=== PATIENT | male | born 1970 | race Asian ===

== ENCOUNTER 2024-11-27 15:36 | Emergency (ER) | payer SELFPAY ==
[2024-11-27] MEDS ORDERED: NA CHLORIDE 0.9% 1,000 ML ONE (16:05)
[2024-11-27] MEDS ORDERED: KETOROLAC 30 MG/ML INJ ONE (16:05)
[2024-11-27] MEDS ORDERED: ONDANSETRON 4 MG/2 ML VIAL ONE (16:05)
[2024-11-27 16:20] LABS: Absolute Lymphocytes (CBC) 1.5 K/uL (0.7-4.9); Hematocrit 45.0 % (39.6-49.0); Hemoglobin 14.8 g/dL (13.6-17.9); MCH 29.2 pg (27.0-35.0); MCHC 33.0 g/dL (32.0-36.0); MCV 88.5 fL (80-100); MPV 7.0 fL (7.6-11.3); Nucleated RBC Absolute Count 0.0 (0-0); Nucleated Red Blood Cells % 0.0 % (0-0); RBC Red Blood Cell Count 5.09 M/uL (4.33-5.43); White Blood Count 6.00 thou/uL (4.3-10.9)
[2024-11-27 16:24] LABS: Sqamous Epithelial None Seen /HPF (None Seen); Urine Micro Reflex YN NO BILL MICROSCOPIC; Urine WBC Clump Few /HPF (None Seen); Urine Yeast (Budding) Trace /HPF (None Seen)
[2024-11-27 16:37] LABS: ALT/SGPT 36.0 U/L (16-61); AST/SGOT 28.0 U/L (15-37); Albumin 3.6 g/dL (3.4-5.0); Albumin/Globulin Ratio 1.1 (1.1-1.8); Alkaline Phosphatase 75.0 U/L (45-117); Anion Gap 8.8 mEq/L (5.0-15.0); BUN Blood Urea Nitrogen 16.0 mg/dL (7-18); Globulin 3.3 g/dL (2.3-3.5); Glucose Level 123.0 mg/dL (74-106); Lipase 31.0 U/L (13-75); Potassium 3.8 mEq/L (3.5-5.1)
--- NOTE | 2024-11-27 16:53 | RAD REPORT ---
EXAMINATION: CT ABDOMEN AND PELVIS WITHOUT CONTRAST CLINICAL INDICATION: FLANK PAIN TECHNIQUE: CT abdomen and pelvis was performed, without IV contrast, as per department protocol. Axia l, sagittal and coronal reconstructions were obtained. One or more of the following dose reduction techniques were used: Automated exposure control, adjustment of the mA and kV according to the patien t size, and iterative reconstruction. Unless otherwise specified, incidental findings do not require dedicated imaging follow-up. COMPARISON: No prior exam. FINDINGS: The lack of intravenous contrast limits the sensitivity of this exam for evaluation of solid visceral organs, vascular structures, and retroperitoneum. LOWER CHEST: The visualized lung bases are clear. LIVER:Normal in size and contour. No focal lesion. Grossly unremarkable gallbladder. SPLEEN: Normal size. No focal lesion. PANCREAS: No mass, ductal dilation, or waqas-pancreatic fluid. ADRENALS: Normal; no mass. KIDNEYS AND URETERS: 3 mm stone is seen in the proximal right ureter resulting in mild right hydronep hrosis. Bilateral calyceal renal calculi are present bilaterally URINARY BLADDER: Normal contour. GASTROINTESTINAL TRACT: No evidence of bowel obstruction, significant free fluid, free air or abscess . APPENDIX: Appendix not visualized, but no inflammatory changes in region of appendix. LYMPH NODES: No lymphadenopathy. MUSCULOSKELETAL: Mild anterolisthesis L4 on 5. IMPRESSION: 3 mm stone proximal right ureter resulting in mild right hydronephrosis. Bilateral calyceal nephrolithiasis.
--- NOTE | 2024-11-27 17:35 | EDPHYS ---
Physician Documentation [facility] Name: Dinh Messina Age: 54 yrs Sex: Male : 1970 Arrival Date: 11/27/2024 Time: 15:36 Bed 2 Private MD: ED Physician Akash Houston HPI: 11/27 15:53 This 54 yrs old Male presents to ER via Ambulatory with complaints of Urinary jh7 Problem, Flank Pain. 15:53 54-year-old male with a past medical history of hypertension presents to the ER for jh7 hematuria and right flank pain radiating to the right lower quadrant starting this morning. The patient reports that he has had kidney stones in the past and that this feels similar. Denies nausea/vomiting, fever, or bowel changes.. Historical: - Allergies: 15:53 No Known Allergies; me1 - PMHx: 15:53 kidney stones; Hypertensive disorder; Hypercholesterolemia; me1 - PSHx: 15:53 None; me1 - Immunization history:: Adult Immunizations up to date. - Infectious Disease History:: Denies. - Social history:: Smoking status: Patient reports the use of cigarette tobacco products, smokes one-half pack cigarettes per day. ROS: 15:53 Constitutional: Per HPI jh7 Exam: 15:53 Constitutional: This is a well developed, well nourished patient who is awake, alert, jh7 and in no acute distress. Head/Face: Normocephalic, atraumatic. Cardiovascular: Regular rate and rhythm with a normal S1 and S2. No gallops, murmurs, or rubs. Normal PMI, no JVD. No pulse deficits. Respiratory: Lungs have equal breath sounds bilaterally, clear to auscultation and percussion. No rales, rhonchi or wheezes noted. No increased work of breathing, no retractions or nasal flaring. Skin: Warm, dry with normal turgor. Normal color with no rashes, no lesions, and no evidence of cellulitis. MS/ Extremity: Pulses equal, no cyanosis. Neurovascular intact. Full, normal range of motion. Neuro: Awake and alert, GCS 15, oriented to person, place, time, and situation. Motor strength 5/5 in all extremities. Sensory grossly intact. Normal gait. 15:53 Abdomen/GI: Inspection: abdomen appears normal, Bowel sounds: normal, Palpation: soft, mild abdominal tenderness, in the right lower quadrant, 15:53 : CVA tenderness, on the right, Vital Signs: 15:51 BP 128 / 87; Pulse 54; Resp 16; Temp 98.1; Pulse Ox 100% ; Weight 63.5 kg; Height 5 ft. me1 3 in. ; Pain 4/10; 16:30 BP 161 / 94; Pulse 57; Resp 16; Pulse Ox 100% on R/A; db 17:00 Pain 0/10; ar8 17:00 BP 139 / 96; Pulse 56; Resp 18; Pulse Ox 100% on R/A; Pain 0/10; ar8 18:00 BP 144 / 96; Pulse 60; Resp 16; Pulse Ox 100% on R/A; db 15:51 Body Mass Index 24.80 (63.50 kg, 160.02 cm) me1 15:51 Pain Scale: Adult me1 17:00 Pain Scale: Adult ar8 17:00 Pain Scale: Adult ar8 MDM: 15:42 Medical Screening Exam initiated [facility] 17:10 Differential diagnosis: UTI, Ureterolithiasis, pyelonephritis, lumbar sprain, bladder jh7 cancer. Data reviewed: vital signs, nurses notes, lab test result(s), radiologic studies, CT scan. I considered the following discharge prescriptions or medication management in the emergency department Medications were administered in the Emergency Department. See MAR. Care significantly affected by the following chronic conditions: Hypertension. Counseling: I had a detailed discussion with the patient and/or guardian regarding the historical points, exam findings, and any diagnostic results supporting the discharge/admit diagnosis, the need for outpatient follow up, a urologist, to return to the emergency department if symptoms worsen or persist or if there are any questions or concerns that arise at home. Response to treatment: the patient's symptoms have markedly improved after treatment. 11/27 15:47 Order name: CBC with Diff; Complete Time: 16:49 [facility] 11/27 15:47 Order name: CMP; Complete Time: 16:49 [facility] 11/27 15:47 Order name: Lipase; Complete Time: 16:49 [facility] 11/27 16:17 Order name: Urine Microscopic Only; Complete Time: 16:49 EDMS 11/27 16:28 Order name: Urine Culture EDMS 11/27 15:47 Order name: CT Abd/Pelvis - Without Contrast; Complete Time: 17:04 [facility] 11/27 15:47 Order name: IV Saline Lock; Complete Time: 16:15 [facility] 11/27 15:47 Order name: Labs collected and sent; Complete Time: 16:15 [facility] Administered Medications: 16:30 Drug: TORadol - Ketorolac IVP 15 mg IVP once Route: IVP; Site: left antecubital; db 17:00 Follow up: Pain 0/10 Adult; Response: No adverse reaction; Pain is decreased ar8 16:30 Drug: Ondansetron IVP 4 mg IVP once; over 2 minutes Route: IVP; Site: left antecubital; db 17:20 Follow up: Response: No adverse reaction ar8 16:30 Drug: NS 0.9% IV 1000 ml IV at 1 bolus Per protocol; to be given as a bolus over 60 db minutes Route: IV; Rate: 1 bolus; Site: left antecubital; 17:20 Follow up: Response: No adverse reaction; IV Status: Completed infusion; IV Intake: ar8 1000ml Disposition Summary: 11/27/24 17:34 Discharge Ordered Notes: Location: Home [facility] Problem: new [facility] Symptoms: have improved [facility] Condition: Stable [facility] Diagnosis - Hydronephrosis with renal and ureteral calculous obstruction [facility] Followup: [facility] - With: Haseeb Kerr MD - When: 2 - 3 days - Reason: Recheck today's complaints Discharge Instructions: - Discharge Summary Sheet [facility] - Kidney Stones [facility] - Hydronephrosis [facility] - Dietary Guidelines to Help Prevent Kidney Stones [facility] Forms: - Medication Reconciliation Form [facility] - Antibiotic Education [facility] - Prescription Opioid Use [facility] - Patient Portal Instructions [facility] - Leadership Thank You Letter [facility] Prescriptions: - Flomax 0.4 mg Oral capsule - take 1 capsule ORAL route daily for 10 days; 10 capsule; Refills: 0, Product [facility] Selection Permitted - ketorolac 10 mg Oral tablet - take 1 tablet ORAL route every 6 hours for 3 days; 12 tablet; Refills: 0, [facility] Product Selection Permitted - Cipro 500 mg Oral Tablet - take 1 tablet ORAL route every 12 hours for 10 days; 20 tablet; Refills: 0, [facility] Product Selection Permitted Addendum: 12/02/2024 07:54 Co-signature as Attending Physician, Akash Houston MD I agree with the assessment and c wagoner plan of care. Signatures: Dispatcher [employer] EDAkash Stoll MD MD cha Hadash, Jennifer, FOLLOW UP REP FOLLOW UP REP jh7 Rowena Arguello, RN RN db Soha Gregg, RN RN me1 Alexx Reilly RN ar8 Corrections: (The following items were deleted from the chart) 11/27 16:17 15:47 UA Rfx Ed Cult if indicated+U.LAB.BRZ ordered. ANGELA MILLER
--- NOTE | 2024-11-27 17:35 | ER ---
Nurse's Notes [facility] Name: Dinh Messina Age: 54 yrs Sex: Male : 1970 Arrival Date: 11/27/2024 Time: 15:36 Bed 2 Private MD: Diagnosis: Hydronephrosis with renal and ureteral calculous obstruction Presentation: 11/27 15:51 Chief complaint: Patient states: Sudden onset of RLQ and R flank pain that started me1 today with nausea. Urine is bloody. Coronavirus screen: At this time, the client does not indicate any symptoms associated with coronavirus-19. Ebola Screen: No symptoms or risks identified at this time. Initial Sepsis Screen: Does the patient meet any 2 criteria? No. Patient's initial sepsis screen is negative. Does the patient have a suspected source of infection? No. Patient's initial sepsis screen is negative. Risk Assessment: Do you want to hurt yourself or someone else? Patient reports no desire to harm self or others. Onset of symptoms was November 27, 2024 at 14:30. 15:51 Method Of Arrival: Ambulatory me1 15:51 Acuity: ZE 3 me1 Historical: - Allergies: 15:53 No Known Allergies; me1 - PMHx: 15:53 kidney stones; Hypertensive disorder; Hypercholesterolemia; me1 - PSHx: 15:53 None; me1 - Immunization history:: Adult Immunizations up to date. - Infectious Disease History:: Denies. - Social history:: Smoking status: Patient reports the use of cigarette tobacco products, smokes one-half pack cigarettes per day. Screenin:00 [facility] ED Fall Risk Assessment (Adult) History of falling in the last 3 months, ar8 including since admission No falls in past 3 months (0 pts) Confusion or Disorientation No (0 pts) Intoxicated or Sedated No (0 pts) Impaired Gait No (0 pts) Mobility Assist Device Used No (0 pt) Altered Elimination No (0 pt) Score/Fall Risk Level 0 - 2 = Low Risk Oriented to surroundings, Maintained a safe environment. Abuse screen: Denies threats or abuse. Nutritional screening: No deficits noted. Tuberculosis screening: No symptoms or risk factors identified. Assessment: 16:00 General: Appears uncomfortable, Behavior is calm, cooperative. ar8 16:00 Pain: Complains of pain in posterior aspect of right lateral abdomen and right lower ar8 quadrant Pain currently is 3 out of 10 on a pain scale. Neuro: Level of Consciousness is awake, alert, obeys commands, Oriented to person, place, time, situation. Cardiovascular: Patient's skin is warm and dry. Respiratory: Airway is patent Respiratory effort is even, unlabored, Respiratory pattern is regular, symmetrical. GI: Abdomen is flat, Abd is soft X 4 quads. : Urine is blood tinged, Reports right flank pain. Derm: No deficits noted. 17:00 Reassessment: Patient appears in no apparent distress at this time. Patient and/or db family updated on plan of care and expected duration. Pain level reassessed. Patient is alert, oriented x 3, equal unlabored respirations, skin warm/dry/pink. 17:58 Reassessment: AMBULATORY TO RESTROOM. db 18:25 Reassessment: Patient appears in no apparent distress at this time. Patient and/or db family updated on plan of care and expected duration. Pain level reassessed. Patient is alert, oriented x 3, equal unlabored respirations, skin warm/dry/pink. Patient states feeling better. Patient states symptoms have improved. Vital Signs: 15:51 BP 128 / 87; Pulse 54; Resp 16; Temp 98.1; Pulse Ox 100% ; Weight 63.5 kg; Height 5 ft. me1 3 in. ; Pain 4/10; 16:30 BP 161 / 94; Pulse 57; Resp 16; Pulse Ox 100% on R/A; db 17:00 Pain 0/10; ar8 17:00 BP 139 / 96; Pulse 56; Resp 18; Pulse Ox 100% on R/A; Pain 0/10; ar8 18:00 BP 144 / 96; Pulse 60; Resp 16; Pulse Ox 100% on R/A; db 15:51 Body Mass Index 24.80 (63.50 kg, 160.02 cm) me1 15:51 Pain Scale: Adult me1 17:00 Pain Scale: Adult ar8 17:00 Pain Scale: Adult ar8 ED Course: 15:40 Patient arrived in ED. cj3 15:42 [facility] jh7 15:42 Akash Houston MD is Attending Physician. 7 15:53 Triage completed. me1 15:53 Arm band placed on Patient placed in an exam room. me1 15:58 Alexx Reilly, RN is Primary Nurse. ar8 16:00 Placed in gown. Bed in low position. Side rails up X2. Provided Education on: plan of ar8 care, diagnostics and estimated wait times. Pulse ox on. NIBP on. 16:08 No provider procedures requiring assistance completed. Inserted saline lock: 20 gauge ar8 in right forearm, using aseptic technique. Blood collected. Flushed with 10 mL NS. 16:08 Urine collected: clean catch specimen. ar8 16:15 CBC with Diff Sent. ar8 16:15 CMP Sent. ar8 16:15 Lipase Sent. ar8 16:24 CT Abd/Pelvis - Without Contrast In Process Unspecified. EDMS 16:[address]. db 17:32 Haseeb Kerr MD is Referral Physician. 7 18:25 IV discontinued, intact, bleeding controlled, No redness/swelling at site. db Administered Medications: 16:30 Drug: TORadol - Ketorolac IVP 15 mg IVP once Route: IVP; Site: left antecubital; db 17:00 Follow up: Pain 0/10 Adult; Response: No adverse reaction; Pain is decreased ar8 16:30 Drug: Ondansetron IVP 4 mg IVP once; over 2 minutes Route: IVP; Site: left antecubital; db 17:20 Follow up: Response: No adverse reaction ar8 16:30 Drug: NS 0.9% IV 1000 ml IV at 1 bolus Per protocol; to be given as a bolus over 60 db minutes Route: IV; Rate: 1 bolus; Site: left antecubital; 17:20 Follow up: Response: No adverse reaction; IV Status: Completed infusion; IV Intake: ar8 1000ml Medication: 16:00 VIS not applicable for this client. ar8 Intake: 17:20 IV: 1000ml; Total: 1000ml. ar8 Outcome: 17:34 Discharge ordered by . 7 18:25 Discharged to home ambulatory, with family, db 18:25 Condition: stable 18:25 Discharge instructions given to patient, Instructed on discharge instructions, follow up and referral plans. Prescriptions given X 3, 18:31 Patient left the ED. ar8 Signatures: Dispatcher [employer] EDMS Barby Jones, JUNIOR ACCOUNTANT JUNIOR ACCOUNTANT 7 Rowena Arguello, RN RN db Soha Gregg, RN RN me1 Nidia Lopez cj3 Alexx Reilly, RN RN ar8 Corrections: (The following items were deleted from the chart) 16:17 16:15 UA Rfx Ed Cult if indicated+U.LAB.BRZ drawn and sent. ar8 EDMS 18:25 18:25 Discharge instructions given to patient, Instructed on discharge instructions, db follow up and referral plans. db
[2024-11-27 19:04] VITALS: BP 144/96; TEMP 98.1; O2SAT 100
== END 2024-11-27 18:31 | disposition home or self-care (01) ==
LOC: ER 15:36
DX: N13.2 Hydronephrosis with renal and ureteral calculous obstruction (principal); F17.210 Nicotine dependence, cigarettes, uncomplicated; Z87.442 Personal history of urinary calculi
CPT/HCPCS: 36415; 74176; 80053; 81015; 83690; 85025; 87086; 87088; 96361; 96374; 96375; 99285; J1885; J2405; J7030